=== PATIENT | male | born 1990 | race African-American/Black ===

== ENCOUNTER 2024-09-12 08:55 | Emergency (ER) | payer SELFPAY ==
[~2024-09-12] VITALS: Ht 177.8 cm; Wt 84.6 kg
[2024-09-12 09:44] VITALS: BP 134/80; PULSE 74; RESP 17; TEMP 98.7; O2SAT 97
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
[2024-09-12] MEDS ORDERED: LIDO5DIS21 TOP (10:19)
[2024-09-12] MEDS ORDERED: CYCL-837 PO (10:19)
[2024-09-12] MEDS ORDERED: NAPR-746 PO (10:19)
== END 2024-09-12 10:34 | disposition home or self-care (01) ==
LOC: ER 08:55
DX: M54.50 Low back pain, unspecified (principal); M79.18 Myalgia, other site; V89.2XXA Person injured in unspecified motor-vehicle accident, traffic, initial encounter; Y93.I9 Activity, other involving external motion; Y92.488 Other paved roadways as the place of occurrence of the external cause; Y99.8 Other external cause status
CPT/HCPCS: 72100